=== PATIENT | male | born 1955 | race Caucasian/White ===

== ENCOUNTER 2021-04-06 07:51 | Emergency (ER) | payer OTHER ==
[~2021-04-06] VITALS: Ht 180.3 cm; Wt 126.1 kg
[2021-04-06] MEDS ORDERED: IBUP400 PO (08:06)
== END 2021-04-06 09:08 | disposition home or self-care (01) ==
LOC: ER 07:51
DX: M25.562 Pain in left knee (principal); Z88.2 Allergy status to sulfonamides
CPT/HCPCS: 99283